=== PATIENT | female | born 1970 ===

== ENCOUNTER 2023-03-13 08:27 | Emergency (ER) | payer OTHER ==
[2023-03-13] MEDS ORDERED: Ondansetron 4 MG/2 ML SDV IVPUSH ONE (08:52)
[2023-03-13] MEDS ORDERED: GI Cocktail Oral Solution 30 ML PO ONE (08:52)
[2023-03-13] MEDS ORDERED: Pantoprazole 40 MG Vial IVPUSH ONE (08:58)
[2023-03-13] MEDS ORDERED: Pantoprazole 40 MG Vial ONE (09:18)
[2023-03-13] MEDS ORDERED: Ondansetron 4 MG/2 ML SDV ONE (09:18)
[2023-03-13 09:24] LABS: BASOPHILS ABSOLUTE AUTO 0.02 K/uL (0.02-0.10); BASOPHILS PERCENT AUTO 0.5 % (0.0-0.5); EOSINOPHILS ABSOLUTE AUTO 0.16 K/uL (0.04-0.40); EOSINOPHILS PERCENT AUTO 3.7 % (1.0-5.0); HEMATOCRIT 40.2 % (37.0-47.0); HEMOGLOBIN 13.4 g/dL (11.5-16.5); LYMPHOCYTES ABSOLUTE AUTO 1.34 K/uL (1.50-4.00); LYMPHOCYTES PERCENT AUTO 30.6 % (20.0-40.0); MEAN CORPUSCULAR HGB CONC 33.3 g/dL (31.0-35.0); MEAN CORPUSCULAR VOLUME 90 fL (76-96); MEAN PLATELET VOLUME 10.2 fL (6.0-10.0); MONOCYTES ABSOLUTE AUTO 0.47 K/uL (0.20-0.80); MONOCYTES PERCENT AUTO 10.7 % (3.0-10.0); NEUTROPHILS ABSOLUTE AUTO 2.39 K/uL (2.00-7.50); NEUTROPHILS PERCENT AUTO 54.5 % (45.0-70.0); PLATELET COUNT,PLT 262 K/uL (150-500); RED BLOOD CELL COUNT 4.47 M/uL (3.80-5.80); WHITE BLOOD CELL COUNT,WBC 4.4 K/uL (4.0-11.0)
[2023-03-13] MEDS ORDERED: Sodium Chloride 0.9% 10 ML Syringe FLUSH PRN (09:42)
[2023-03-13] MEDS ORDERED: Aspirin 81 MG Tab.Chew PO ONE (09:48)
[2023-03-13 09:59] LABS: APPEARANCE,URINE CLEAR (CLEAR); BILIRUBIN,URINE NEGATIVE (NEGATIVE); COLOR,URINE YELLOW; GLUCOSE,URINE NEGATIVE (NEGATIVE); KETONES,URINE NEGATIVE (NEGATIVE); LEUKOCYTE ESTERASE,URINE MODERATE (NEGATIVE); NITRITE,URINE NEGATIVE (NEGATIVE); OCCULT BLOOD,URINE NEGATIVE (NEGATIVE); PH,URINE 7.5 (5.0-8.0); PROTEIN,URINE NEGATIVE (NEGATIVE); UROBILINOGEN,URINE 0.2 E.U./dL (0.2-1.0)
[2023-03-13 10:09] LABS: A/G RATIO 1.1 (0.8-2.0); ALBUMIN 3.8 g/dL (3.4-5.0); ANION GAP 12.2 mmol/L (5.0-15.0); BILIRUBIN TOTAL 1.1 mg/dL (0.0-1.0); BUN/CREATININE RATIO 17.2 (6-25); CALCIUM 9.4 mg/dL (8.5-10.1); CARBON DIOXIDE,CO2 25.5 mmol/L (21.0-32.0); CREATININE 0.87 mg/dL (0.55-1.02); EST CRCL DRUG DOSING (CG) 69.2 mL/min; POTASSIUM,K 3.7 mmol/L (3.5-5.1); PROTEIN TOTAL,TP 7.3 g/dL (6.4-8.2)
[2023-03-13 10:10] LABS: PROTHROMBIN TIME 10.1 sec (9.0-11.5)
[2023-03-13 10:11] LABS: AMORPHOUS SEDIMENT,URINE MANY /HPF; RBC,URINE 0-5 /HPF; SQUAMOUS EPITHELIAL CELLS,UR FEW /HPF
[2023-03-13 10:11] LABS: TROPONIN I HIGH SENSITIVITY 5.5 pg/ml (<=60.4)
[2023-03-13] MEDS ORDERED: Ketorolac 30 MG/ML SDV ONE (10:22)
[2023-03-13] MEDS ORDERED: Ketorolac 30 MG/ML SDV IVPUSH ONE (10:32)
[2023-03-13] MEDS ORDERED: Sucralfate 1 GM Tab PO ONE (10:56)
[2023-03-13] MEDS ORDERED: Magnesium Citrate Solution 296 ML Bottle ONE (11:09)
[2023-03-13] MEDS ORDERED: Magnesium Citrate Solution 296 ML Bottle PO ONE (11:11)
== END 2023-03-13 13:10 | disposition home or self-care (01) ==
LOC: LB.ED 08:27
DX: K29.00 Acute gastritis without bleeding (principal); K59.00 Constipation, unspecified; Z88.0 Allergy status to penicillin; Z88.8 Allergy status to other drugs, medicaments and biological substances
CPT/HCPCS: 36415; 71045; 74176; 80053; 81001; 83690; 83735; 84484; 85025; 85610; 85730; 93005; 96374; 96375; 99285; A9270; C9113; J1885; J2405; 93010; 99284